=== PATIENT | male | born 1995 | race African-American/Black ===

== ENCOUNTER 2020-10-23 20:28 | Emergency (ER) | payer OTHER ==
[~2020-10-23 20:28] MED LIST: AMOXICILLIN500 MG PO; BENTYL10 MG PO; BIAXIN500 MG PO; BUSPAR5 MG PO; BUSPIRONE HCL15 MG PO; EFFEXOR XR75 MG PO; IBUPROFEN800 MG PO; PRILOSEC20 MG PO; PROTONIX 40MG T40 MG PO
[2020-10-23 21:59] LABS: BASOPHIL 0.2 % (0-2); EOSINOPHIL 0.1 % (0-5); HCT 40.5 % (42.0-52.0); HGB 13.8 g/dl (13.2-18.0); LYMPHOCYTE 11.2 % (15-48); MCH 25.5 pg (25.0-31.0); MCHC 34.1 g/dL (32.0-36.0); MCV 74.9 fL (78.0-100.0); MONOCYTE 5.4 % (0-12); MPV 11.3 fL (6.0-9.5); NEUTROPHIL 82.8 % (41-80); NRBC 0; PLT 188 K/uL (150-400); RBC 5.41 M/uL (4.70-6.00); RDW 12.9 % (11.5-14.0); WBC 13.4 K/uL (4.0-10.5)
[2020-10-23 22:11] LABS: BILIRUBIN - TOTAL 0.4 mg/dL (0.2-1.0); CREATININE 0.88 mg/dL (0.67-1.17); GLOBULIN (CALCULATION) 3.7 g/dL; POTASSIUM 3.5 mmol/L (3.5-5.1); TOTAL PROTEIN 7.7 g/dL (6.4-8.2)
[2020-10-23 22:42] LABS: CORONAVIRUS 2019 SARS-COV-2 NEGATIVE (NEGATIVE); INFLUENZA A NAA NEGATIVE (NEGATIVE)
[2020-10-24] MEDS ORDERED: NORCO 5-325 TA1 EACH PO (01:10)
[2020-10-24] MEDS ORDERED: MEDROL 4MG DOSEP4 MG PO (01:10)
[2020-10-24] MEDS ORDERED: ZITHROMAX500 MG PO (01:10)
== END 2020-10-24 01:25 | disposition home or self-care (01) ==
LOC: FER 20:28
PROVIDERS: Emergency Medicine Emergency Medical Services
DX: B34.9 Viral infection, unspecified (principal); J02.9 Acute pharyngitis, unspecified; I10 Essential (primary) hypertension; K21.9 Gastro-esophageal reflux disease without esophagitis; F17.210 Nicotine dependence, cigarettes, uncomplicated; Z20.822 Contact with and (suspected) exposure to COVID-19
CPT/HCPCS: 36415; 71045; 80053; 83605; 85025; 87880; J1100; J1885; J7030; U0002

== ENCOUNTER 2020-12-02 09:55 | Emergency (ER) | payer OTHER ==
[~2020-12-02 09:55] MED LIST changes: +MEDROL 4MG DOSEP4 MG PO; +NORCO 5-325 TA1 EACH PO; +ZITHROMAX500 MG PO
[2020-12-02 11:13] LABS: BASOPHIL 0.7 % (0-2); EOSINOPHIL 0.5 % (0-5); HCT 39.7 % (42.0-52.0); HGB 13.6 g/dl (13.2-18.0); LYMPHOCYTE 40.2 % (15-48); MCH 24.9 pg (25.0-31.0); MCHC 34.3 g/dL (32.0-36.0); MCV 72.6 fL (78.0-100.0); MONOCYTE 5.7 % (0-12); MPV 10.9 fL (6.0-9.5); NEUTROPHIL 52.6 % (41-80); NRBC 0; PLT 217 K/uL (150-400); RBC 5.47 M/uL (4.70-6.00); RDW 14.1 % (11.5-14.0); WBC 6.1 K/uL (4.0-10.5)
[2020-12-02 11:28] LABS: ALBUMIN 3.8 g/dL (3.4-5.0); BILIRUBIN - TOTAL 0.6 mg/dL (0.2-1.0); BUN/CREAT RATIO (CALC) 8.8 RATIO; CREATININE 0.91 mg/dL (0.67-1.17); GLOBULIN (CALCULATION) 3.2 g/dL; POTASSIUM 3.5 mmol/L (3.5-5.1)
== END 2020-12-02 13:29 | disposition home or self-care (01) ==
LOC: FER 09:55
PROVIDERS: Emergency Medicine
DX: R07.89 Other chest pain (principal); I10 Essential (primary) hypertension; F17.210 Nicotine dependence, cigarettes, uncomplicated; Z20.822 Contact with and (suspected) exposure to COVID-19
CPT/HCPCS: 36415; 80053; 84484; 85025; 93005; J1885; J2060; U0002

== ENCOUNTER 2021-04-19 16:36 | Emergency (ER) | payer OTHER ==
[2021-04-19] MEDS ORDERED: NORVASC5 MG PO (20:18)
[2021-04-19] MEDS ORDERED: COZAAR25 MG PO (20:18)
[2021-04-19] MEDS ORDERED: ATARAX25 MG PO (20:18)
== END 2021-04-19 20:55 | disposition home or self-care (01) ==
LOC: FER 16:36
DX: R51.9 Headache, unspecified (principal); I10 Essential (primary) hypertension; F41.9 Anxiety disorder, unspecified; Z76.0 Encounter for issue of repeat prescription; Z87.820 Personal history of traumatic brain injury
CPT/HCPCS: 70450

== ENCOUNTER 2022-02-20 23:15 | Emergency (ER) | payer SELFPAY ==
[~2022-02-20 23:15] MED LIST changes: +ATARAX25 MG PO; +COZAAR25 MG PO; +NORVASC5 MG PO
[2022-02-21 01:07] LABS: CORONAVIRUS 2019 SARS-COV-2 NEGATIVE (NEGATIVE); INFLUENZA A NAA NEGATIVE (NEGATIVE)
[2022-02-21 01:11] LABS: BILIRUBIN NEGATIVE (NEGATIVE); BLOOD NEGATIVE Ery/uL (NEGATIVE); CLARITY CLEAR (CLEAR); COLOR YELLOW (YELLOW); GLUCOSE (U) NORMAL (NORMAL); LEUKOCYTES NEGATIVE Leu/uL (NEGATIVE); NITRITE NEGATIVE (NEGATIVE); PROTEIN NEGATIVE (NEGATIVE); UROBILINOGEN 0.2 mg/dL (0.2-1.0)
[2022-02-21 01:12] LABS: BASOPHIL 0.3 % (0-2); EOSINOPHIL 0.8 % (0-5); HCT 40.8 % (42.0-52.0); HGB 14.2 g/dl (13.2-18.0); LYMPHOCYTE 24.8 % (15-48); MCH 25.3 pg (25.0-31.0); MCHC 34.8 g/dL (32.0-36.0); MCV 72.7 fL (78.0-100.0); MONOCYTE 6.5 % (0-12); MPV 10.7 fL (6.0-9.5); NEUTROPHIL 67.3 % (41-80); NRBC 0; PLT 217 K/uL (150-400); RBC 5.61 M/uL (4.70-6.00); WBC 9.8 K/uL (4.0-10.5)
[2022-02-21 01:32] LABS: ALBUMIN 4.1 g/dL (3.4-5.0); BILIRUBIN - TOTAL 0.4 mg/dL (0.2-1.0); BUN/CREAT RATIO (CALC) 9.5 RATIO; CREATININE 0.84 mg/dL (0.67-1.17); GLOBULIN (CALCULATION) 3.4 g/dL; POTASSIUM 3.8 mmol/L (3.5-5.1); TOTAL PROTEIN 7.5 g/dL (6.4-8.2)
[2022-02-21] MEDS ORDERED: SULFASALAZINE500 MG PO (03:56)
[2022-02-21] MEDS ORDERED: ANUCORT-HC25 MG PR (03:59)
== END 2022-02-21 04:29 | disposition home or self-care (01) ==
LOC: FER 23:15
PROVIDERS: Emergency Medicine
DX: K52.9 Noninfective gastroenteritis and colitis, unspecified (principal); I88.0 Nonspecific mesenteric lymphadenitis; I10 Essential (primary) hypertension; F17.200 Nicotine dependence, unspecified, uncomplicated; Z20.822 Contact with and (suspected) exposure to COVID-19
CPT/HCPCS: 36415; 80053; 81003; 83690; 85025; J7030; Q9967; U0002

== ENCOUNTER 2022-03-15 01:07 | Emergency (ER) | payer SELFPAY ==
[~2022-03-15 01:07] MED LIST changes: +ANUCORT-HC25 MG PR; +SULFASALAZINE500 MG PO
[2022-03-15 07:00] LABS: ALBUMIN 4.1 g/dL (3.4-5.0); BILIRUBIN - TOTAL 0.4 mg/dL (0.2-1.0); CREATININE 0.97 mg/dL (0.67-1.17); GLOBULIN (CALCULATION) 3.3 g/dL; POTASSIUM 3.4 mmol/L (3.5-5.1); TOTAL PROTEIN 7.4 g/dL (6.4-8.2)
[2022-03-15 08:18] LABS: BASOPHIL 0.4 % (0-2); EOSINOPHIL 0.7 % (0-5); HCT 39.1 % (42.0-52.0); HGB 13.5 g/dl (13.2-18.0); LYMPHOCYTE 40.8 % (15-48); MCH 24.7 pg (25.0-31.0); MCHC 34.5 g/dL (32.0-36.0); MCV 71.6 fL (78.0-100.0); MONOCYTE 5.3 % (0-12); NEUTROPHIL 52.6 % (41-80); NRBC 0; PLT 230 K/uL (150-400); RBC 5.46 M/uL (4.70-6.00); RDW 14.6 % (11.5-14.0); WBC 8.5 K/uL (4.0-10.5)
[2022-03-15 08:25] LABS: CLARITY CLEAR (CLEAR); COLOR YELLOW (YELLOW); SPECIFIC GRAVITY > 1.030 (1.001-1.030)
[2022-03-15 08:26] LABS: GLUCOSE (U) NORMAL (NORMAL); PROTEIN NEGATIVE (NEGATIVE)
[2022-03-15 08:27] LABS: AMPHETAMINES NEGATIVE (NEGATIVE); BARBITURATES NEGATIVE (NEGATIVE); BILIRUBIN NEGATIVE (NEGATIVE); BLOOD NEGATIVE Ery/uL (NEGATIVE); ECSTASY (MDMA) NEGATIVE (NEGATIVE); LEUKOCYTES TRACE Leu/uL (NEGATIVE); MARIJUANA (THC) POSITIVE (NEGATIVE); METHADONE NEGATIVE (NEGATIVE); NITRITE NEGATIVE (NEGATIVE); OPIATES NEGATIVE (NEGATIVE); OXYCODONE NEGATIVE (NEGATIVE); UROBILINOGEN 0.2 mg/dL (0.2-1.0)
== END 2022-03-15 12:05 | disposition other institution (70) ==
LOC: FER 01:07
PROVIDERS: Internal Medicine
DX: R45.851 Suicidal ideations (principal); I10 Essential (primary) hypertension; F25.9 Schizoaffective disorder, unspecified; Z20.822 Contact with and (suspected) exposure to COVID-19
CPT/HCPCS: 36415; 80053; 80305; 81003; 85025; 99285; U0002